=== PATIENT | female | born 1955 | race Two or more races ===

== ENCOUNTER 2018-03-22 20:38 | Emergency (ER) | payer OTHER ==
[~2018-03-22] VITALS: Ht 162.6 cm; Wt 70.3 kg
[2018-03-22] MEDS ORDERED: IV NORMAL SALINE 1000 ML BAG IV ONE (20:45)
[2018-03-22] MEDS ORDERED: ONDANSETRON 4 MG/2 ML VIAL IV ONE (20:45)
[2018-03-22] MEDS ORDERED: ONDANSETRON 4 MG/2 ML VIAL ONE (20:52)
[2018-03-22 21:13] LABS: BASOPHILS # (AUTO) 0.1 K/uL (0.0-8.0); EOSINOPHILS # (AUTO) 0.2 K/uL (0.0-0.7); EOSINOPHILS % (AUTO) 1.9 % (0.0-7.0); HEMATOCRIT 40.3 % (31.2-41.9); HEMOGLOBIN 13.6 g/dL (10.9-14.3); LYMPHOCYTES # (AUTO) 2.6 K/uL (20.0-40.0); LYMPHOCYTES % (AUTO) 31.4 % (20.5-51.5); MEAN CORPUSCULAR HEMOGLOBIN 29.8 uug (24.7-32.8); MEAN CORPUSCULAR HGB CONC 34 g/dL (32.3-35.6); MEAN CORPUSCULAR VOLUME 88.1 fL (75.5-95.3); MONOCYTES # (AUTO) 0.4 K/uL (2.0-10.0); MONOCYTES % (AUTO) 5.3 % (0.0-11.0); NEUTROPHILS # (AUTO) 4.9 K/uL (1.8-8.9); NEUTROPHILS % (AUTO) 60.4 % (38.5-71.5); PLATELET COUNT (AUTO) 228 K/uL (179-408); RED BLOOD CELL COUNT(AUTO) 4.57 MIL/uL (3.63-4.92); WHITE BLOOD COUNT (AUTO) 8.2 K/uL (3.8-11.8)
[2018-03-22] MEDS ORDERED: LORAZEPAM 2 MG/1 ML VIAL IV ONE (21:15)
[2018-03-22] MEDS ORDERED: LORAZEPAM 2 MG/1 ML VIAL ONE (21:16)
[2018-03-22 21:20] LABS: POTASSIUM 3.7 mmol/L (3.5-5.1)
[2018-03-22] MEDS ORDERED: MONTELUKAST TAB 10MG (21:21)
[2018-03-22] MEDS ORDERED: VITAMIN D3 2000 UNIT (21:21)
[2018-03-22] MEDS ORDERED: LEVOTHYROXIN TAB 50MCG (21:21)
[2018-03-22] MEDS ORDERED: METOPROL SUC (21:21)
[2018-03-22] MEDS ORDERED: SIMVASTATIN 40 MG (21:21)
[2018-03-22] MEDS ORDERED: PANTOPRAZOLE TAB 40MG (21:21)
[2018-03-22] MEDS ORDERED: FLUOXETINE CAP 20MG (21:21)
[2018-03-22 21:25] LABS: BILIRUBIN,DIRECT 0.1 mg/dL (0.0-0.2); BILIRUBIN,TOTAL 0.3 mg/dL (0.2-1.0)
[2018-03-22] MEDS ORDERED: MECLIZINE HCL 25 MG TABLET PO ONE (21:30)
[2018-03-22] MEDS ORDERED: MECLIZINE HCL 25 MG TABLET ONE (21:35)
[2018-03-22] MEDS ORDERED: diphenhydrAMINE 50 MG/1 ML VIAL ONE (22:30)
[2018-03-22] MEDS ORDERED: diphenhydrAMINE 50 MG/1 ML VIAL IV ONE (22:30)
[2018-03-22] MEDS ORDERED: METOCLOPRAMIDE HCL 10 MG/2 ML VIAL IV ONE (22:30)
[2018-03-22] MEDS ORDERED: METOCLOPRAMIDE HCL 10 MG/2 ML VIAL ONE (22:30)
--- NOTE | 2018-03-22 23:18 | NUR ---
Patient discharged to home in stable conditon. Written and verbal after care instructions given. Patient verbalizes understanding of instructions. Pt ambulated out of ER in steady gait accompanied by son who will drive home. All belongings with pt. VSS. NAD noted
--- NOTE | 2018-03-22 23:18 | NUR ---
IV removed. Catheter intact and site benign. Pressure and 4x4 gauze applied to site. No bleeding noted.
[2018-03-22 23:28] VITALS: BP 131/77
== END 2018-03-22 23:28 | disposition home or self-care (01) ==
LOC: ER 20:40
DX: H81.399 Other peripheral vertigo, unspecified ear (principal); R11.2 Nausea with vomiting, unspecified; I10 Essential (primary) hypertension; E78.00 Pure hypercholesterolemia, unspecified; K21.9 Gastro-esophageal reflux disease without esophagitis
CPT/HCPCS: 36415; 70030-TC; 83690; 85025; 85730; 93005; A4663; J1200; J2060; J2405; J2765; J7030; J8597